=== PATIENT | male | born 1955 | race Caucasian/White ===

== ENCOUNTER 2017-03-07 17:30 | Emergency (ER) | payer MEDICAID ==
[~2017-03-07] VITALS: Ht 180.3 cm; Wt 104.3 kg
[2017-03-07 17:41] VITALS: BP 136/96
[2017-03-07 19:21] LABS: Basophils # (auto) 0.1 uL; Basophils % (auto) 1.5 % (0.0-2.0); Eosinophils # (auto) 0.1 uL; Eosinophils % (auto) 1.4 % (0.0-7.0); Hematocrit 36.4 % (41.0-53.0); Lymphocytes # (auto) 0.8 uL; Lymphocytes % (auto) 11.9 % (10.0-50.0); Mean Corpuscular Hemoglobin 28.6 pg (28.0-32.0); Mean Corpuscular Volume 86.6 fL (80.0-100.0); Mean Platelet Volume 7.9 fL (6.9-10.8); Monocytes % (auto) 13.7 % (0.0-12.0); Neutrophils % (auto) 71.5 % (37.0-80.0); Platelet Count (auto) 116 10^3/uL (140-450); Red Cell Distribution Width 18.4 % (11.8-14.3)
[2017-03-07 19:36] LABS: Albumin 3.3 g/dL (3.4-5.0); BUN/Creatinine Ratio 14.9; Bilirubin, Total 0.7 mg/dL (0.2-1.0); Calcium 8.6 mg/dL (8.5-10.1); Potassium 3.9 mmol/L (3.5-5.1); Total Protein 8.1 g/dL (6.4-8.2)
== END 2017-03-08 01:00 | disposition left against medical advice (07) ==
LOC: ER 17:33
DX: R10.11 Right upper quadrant pain (principal); Z53.21 Procedure and treatment not carried out due to patient leaving prior to being seen by health care provider
CPT/HCPCS: 36415; 74176; 80053; 85025; 93005

== ENCOUNTER 2017-06-11 03:56 | Emergency (ER) | payer MEDICAID ==
[~2017-06-11] VITALS: Ht 182.9 cm; Wt 99.8 kg
[2017-06-11 04:06] VITALS: BP 172/89
== END 2017-06-11 07:52 | disposition home or self-care (01) ==
LOC: ER 03:56 → EDBD 03:56 → ER 07:52
DX: M54.9 Dorsalgia, unspecified (principal); Z53.21 Procedure and treatment not carried out due to patient leaving prior to being seen by health care provider

== ENCOUNTER 2017-06-11 19:44 | Inpatient (IN) | payer MEDICAID ==
[~2017-06-11] VITALS: Ht 172.7 cm; Wt 91.2 kg
[2017-06-11 21:14] LABS: Basophils # (auto) 0 uL; Basophils % (auto) 0.5 % (0.0-2.0); Eosinophils # (auto) 0.1 uL; Eosinophils % (auto) 1.5 % (0.0-7.0); Hematocrit 38.6 % (41.0-53.0); Hemoglobin 12.8 g/dL (13.5-17.5); Lymphocytes # (auto) 0.6 uL; Lymphocytes % (auto) 9.1 % (10.0-50.0); Mean Corpuscular Hemoglobin 28.6 pg (28.0-32.0); Mean Corpuscular Hgb Conc. 33.2 g/dL (32.0-36.0); Monocytes # (auto) 0.7 uL; Monocytes % (auto) 9.8 % (0.0-12.0); Neutrophils # (auto) 5.4 uL; Neutrophils % (auto) 79.1 % (37.0-80.0); Nucleated Red Blood Cells % 0.2 %; Platelet Count (auto) 139 10^3/uL (140-450); Red Blood Cells 4.49 10^6/uL (4.5-5.90); Red Cell Distribution Width 17.5 % (11.8-14.3); White Blood Cell 6.8 10^3/uL (4.4-10.8)
[2017-06-11] MEDS ORDERED: ONDANSETRON HCL 4 MG/2 ML VIAL IV ONE (21:30)
[2017-06-11] MEDS ORDERED: MORPHINE SULFATE 4 MG/ML SYR/VIAL IV ONE ×2 (21:30→23:00)
[2017-06-11 21:33] LABS: Alanine Aminotransferase 47 U/L (16-61); Albumin 3.6 g/dL (3.4-5.0); Amylase 20 U/L (25-115); Anion Gap 7 (5-15); Aspartate Aminotransferase 40 U/L (15-37); BUN/Creatinine Ratio 11.1; Blood Urea Nitrogen 10 mg/dL (7-18); Calcium 8.7 mg/dL (8.5-10.1); Carbon Dioxide 23 mmol/L (21-32); Chloride 103 mmol/L (98-107); GFR African American 110 mL/min; GFR Non-African American 91 mL/min; Glucose 135 mg/dL (74-106); Lipase 115 U/L (73-393); Potassium 3.7 mmol/L (3.5-5.1); Sodium 133 mmol/L (136-145)
[2017-06-11 21:39] LABS: Alkaline Phosphatase 91 U/L (45-117); Bilirubin, Total 0.9 mg/dL (0.2-1.0); Total Protein 8.6 g/dL (6.4-8.2)
[2017-06-11 22:21] LABS: INR 1.02 (0.9-1.15); Prothrombin Time 11.1 sec (9.37-12.3)
[2017-06-11] MEDS ORDERED: cloNIDine HCL 0.1 MG TAB PO ONE (23:00)
[2017-06-12] MEDS ORDERED: ACETAMINOPHEN 500 MG TAB PO PRN
[2017-06-12] MEDS ORDERED: MORPHINE SULFATE 4 MG/ML SYR/VIAL IV PRN
[2017-06-12] MEDS ORDERED: ONDANSETRON HCL 4 MG/2 ML VIAL IV PRN
[2017-06-12] MEDS ORDERED: HYDROcodone-ACET 5/325MG TAB PO PRN
[2017-06-12] MEDS: SODIUM CHLORIDE 0.9% 1,000 ML IV SCH ×2 (00:20→11:14)
[2017-06-12 01:09] VITALS: BP 132/75
[2017-06-12 01:20] LABS: Urine Bacteria FEW /hpf (None Seen); Urine Blood Negative /uL (Negative); Urine Mucus FEW (None Seen); Urine Specific Gravity 1.019 (1.001-1.035); Urine WBC 6 /hpf (0 - 3)
[2017-06-12 02:15] VITALS: BP 132/75
[2017-06-12 05:26] VITALS: BP 131/92
[2017-06-12] MEDS ORDERED: DEXTROSE (50%) 50ML SYRG IV PRN (07:00)
[2017-06-12] MEDS: ACCU-CHEK COMFORT CURVE STRIP VI SCH ×2 (07:00→12:33)
[2017-06-12] MEDS: InsuLIN REG 1unit/0.01ml Soln (100units/ml) SC SCH ×2 (07:00→12:34)
[2017-06-12 08:00] VITALS: BP 111/71
[2017-06-12 09:00] VITALS: BP 111/71
[2017-06-12] MEDS ORDERED: LISINOPRIL 10 MG TAB PO SCH (10:00)
[2017-06-12 13:00] VITALS: BP 110/76
[2017-06-12] MEDS ORDERED: PIPERACILLIN-TAZOB 3.375GM 100 ML IV SCH (18:00)
== END 2017-06-12 15:10 | disposition home or self-care (01) | DRG 351 ==
LOC: ER 19:44 → TELE-WESTW 19:45
PROVIDERS: ADMIT Nurse Practitioner Family; ATTEND Internal Medicine
DX: M25.552 Pain in left hip (principal); K74.60 Unspecified cirrhosis of liver; I10 Essential (primary) hypertension; E11.9 Type 2 diabetes mellitus without complications; D64.9 Anemia, unspecified; K57.30 Diverticulosis of large intestine without perforation or abscess without bleeding; F17.210 Nicotine dependence, cigarettes, uncomplicated; K80.20 Calculus of gallbladder without cholecystitis without obstruction; N20.0 Calculus of kidney; Z90.49 Acquired absence of other specified parts of digestive tract; Z88.5 Allergy status to narcotic agent; Z83.3 Family history of diabetes mellitus
CPT/HCPCS: 36415; 71045; 73502; 74176; 76705; 80053; 81001; 82150; 82962; 83690; 83735; 84484; 85025; 85610; 85730; 93005; 94761; 96361; 96374; 96375; 96376; J1815; J2405

== ENCOUNTER 2017-12-11 12:23 | Inpatient (IN) | payer MEDICAID ==
[~2017-12-11] VITALS: Ht 180.3 cm; Wt 125.6 kg
[2017-12-11] VITALS (17 sets, daily range): BP systolic 77–175; BP diastolic 48–76
[2017-12-11 13:19] LABS: Basophils # (auto) 0 uL; Mean Corpuscular Hemoglobin 31.4 pg (28.0-32.0)
[2017-12-11 13:21] LABS: Basophils % (auto) 0.5 % (0.0-2.0); Eosinophils # (auto) 0.2 uL; Eosinophils % (auto) 2.2 % (0.0-7.0); Hematocrit 22.9 % (41.0-53.0); Hemoglobin 7.6 g/dL (13.5-17.5); Lymphocytes # (auto) 1.1 uL; Lymphocytes % (auto) 13.5 % (10.0-50.0); Mean Corpuscular Hgb Conc. 33.2 g/dL (32.0-36.0); Mean Corpuscular Volume 94.5 fL (80.0-100.0); Monocytes # (auto) 0.8 uL; Monocytes % (auto) 10.6 % (0.0-12.0); Neutrophils # (auto) 5.7 uL; Neutrophils % (auto) 73.2 % (37.0-80.0); Platelet Count (auto) 137 10^3/uL (140-450); Red Blood Cells 2.43 10^6/uL (4.5-5.90); Red Cell Distribution Width 15.5 % (11.8-14.3); White Blood Cell 7.8 10^3/uL (4.4-10.8)
[2017-12-11 13:27] LABS: Albumin 2.4 g/dL (3.4-5.0); BUN/Creatinine Ratio 18.7; Calcium 7.8 mg/dL (8.5-10.1); Potassium 3.9 mmol/L (3.5-5.1)
[2017-12-11 13:29] LABS: Bilirubin, Total 0.5 mg/dL (0.2-1.0); Total Protein 5.8 g/dL (6.4-8.2)
[2017-12-11 13:42] LABS: Magnesium 1.8 mg/dL (1.6-2.6)
[2017-12-11 13:56] LABS: INR 1.17 (0.9-1.15); Partial Thromboplastin Time 21.5 sec (23.78-33.04); Prothrombin Time 12.4 sec (9.27-12.13)
[2017-12-11] MEDS ORDERED: PANTOPRAZOLE 80 MG in SODIUM CHL 0.9% 60 ML IV ONE (16:00)
[2017-12-11] MEDS ORDERED: SODIUM CHLORIDE 0.9% 1,000 ML IV ONE (16:00)
[2017-12-11] MEDS ORDERED: PANTOPRAZOLE 40 MG/10 ML VIAL IV ONE ×2 (16:00→23:45)
[2017-12-11] MEDS ORDERED: LORazepam 2MG/ML-1ML VIAL ONE (17:00)
[2017-12-11] MEDS ORDERED: MORPHINE SULFATE 4 MG/ML SYR/VIAL IV ONE (17:15)
[2017-12-11] MEDS ORDERED: LORazepam 2MG/ML-1ML VIAL IV ONE (17:15)
[2017-12-11] MEDS ORDERED: ONDANSETRON HCL 4 MG/2 ML VIAL IV ONE (17:15)
[2017-12-11] MEDS ORDERED: SUCCINYLCHOLINE CHLORIDE 20 MG/ML 10ML VIAL IV ONE ×4 (17:22→18:45)
[2017-12-11] MEDS ORDERED: ETOMIDATE (2MG/ML) 20ML VIAL IV ONE ×2 (17:22→18:45)
[2017-12-11] MEDS: MIDAZOLAM DRIP 50 mg/50mL 50 ML IV SCH ×2 (17:30→23:53)
[2017-12-11] MEDS ORDERED: MIDAZOLAM DRIP 50 mg/50mL 50 ML IV ONE ×3 (17:38→23:44)
[2017-12-11] MEDS ORDERED: NOREPINEPHRINE 8 MG/250ML KIT 250 ML IV ONE (17:44)
[2017-12-11 17:54] LABS: Hematocrit 20.7 % (41.0-53.0)
[2017-12-11 17:56] LABS: Hemoglobin 6.5 g/dL (13.5-17.5)
[2017-12-11] MEDS: OCTREOTIDE ACETATE 500 MCG in SODIUM CHL 0.9% 99 ML IV SCH (18:00)
[2017-12-11] MEDS: PROPOFOL 100 ML IV SCH (18:00)
[2017-12-11] MEDS ORDERED: PROPOFOL 100 ML IV ONE ×2 (18:09→21:56)
[2017-12-11 18:15] LABS: Lactic Acid w/Reflex 8.8 mmol/L (0.4-2.0)
[2017-12-11] MEDS ORDERED: PHYTONADIONE (VIT K)10 MG/ML 1ML VIAL SUBCUT ONE (18:30)
[2017-12-11] MEDS ORDERED: cefTRIAXone 1GM/10ml IVPUSH 10 ML IV ONE (18:45)
[2017-12-11] MEDS ORDERED: NITROGLYCERIN 0.4 MG SL TAB SL PRN (18:45)
[2017-12-11] MEDS ORDERED: OCTREOTIDE ACETATE 100 MCG in SODIUM CHL 0.9% 50 ML IV ONE (18:45)
[2017-12-11] MEDS ORDERED: DEXTROSE (50%) 50ML SYRG IV PRN (18:45)
[2017-12-11] MEDS ORDERED: MORPHINE SULFATE 4 MG/ML SYR/VIAL IV PRN ×3 (18:45)
[2017-12-11] MEDS ORDERED: OCTREOTIDE ACETATE 500 MCG in SODIUM CHL 0.9% 99 ML IV SCH (18:45)
[2017-12-11] MEDS ORDERED: ONDANSETRON HCL 4 MG/2 ML VIAL IV PRN (18:45)
[2017-12-11] MEDS: NOREPINEPHRINE 8 MG/250ML KIT 250 ML IV SCH (19:03)
[2017-12-11] MEDS: metroNIDAZOLE 500MG/100ML 100 ML IV SCH (19:33)
[2017-12-11] MEDS: SODIUM CHLORIDE 0.9% 1,000 ML IV SCH (19:41)
[2017-12-11 19:48] LABS: Amylase 19 U/L (25-115); Lipase 185 U/L (73-393)
[2017-12-11 21:58] LABS: Albumin 2.3 g/dL (3.4-5.0); Calcium 6.7 mg/dL (8.5-10.1)
[2017-12-11 22:05] LABS: BUN/Creatinine Ratio 22.7; Bilirubin, Total 0.8 mg/dL (0.2-1.0); Total Protein 5.1 g/dL (6.4-8.2)
[2017-12-11 22:07] LABS: Potassium 5.7 mmol/L (3.5-5.1)
[2017-12-12] VITALS (109 sets, daily range): BP systolic 71–146; BP diastolic 37–91
[2017-12-12] MEDS: ACCU-CHEK COMFORT CURVE STRIP VI SCH ×4 (00:01→18:00)
[2017-12-12] MEDS ORDERED: SODIUM POLYSTYRENE SULF 15GM/60ML SUSP PR ONE (00:30)
[2017-12-12] MEDS: PANTOPRAZOLE 80 MG in SODIUM CHL 0.9% 60 ML IV SCH ×3 (01:06→22:30)
[2017-12-12] MEDS: NOREPINEPHRINE 8 MG/250ML KIT 250 ML IV SCH ×5 (01:21→23:38)
[2017-12-12] MEDS: SODIUM CHLORIDE 0.9% 1,000 ML IV SCH ×3 (01:25→18:47)
[2017-12-12] MEDS: OCTREOTIDE ACETATE 500 MCG in SODIUM CHL 0.9% 99 ML IV SCH ×2 (01:27→14:00)
[2017-12-12] MEDS ORDERED: MIDAZOLAM DRIP 50 mg/50mL 50 ML IV ONE ×5 (03:00→20:28)
[2017-12-12] MEDS: metroNIDAZOLE 500MG/100ML 100 ML IV SCH ×3 (03:19→19:38)
[2017-12-12] MEDS: MIDAZOLAM DRIP 50 mg/50mL 50 ML IV SCH ×6 (03:22→20:46)
[2017-12-12] MEDS ORDERED: PROPOFOL 100 ML IV ONE (03:27)
[2017-12-12 04:20] LABS: Basophils # (auto) 0.1 uL; Eosinophils # (auto) 0.3 uL; Eosinophils % (auto) 1.1 % (0.0-7.0); Hemoglobin 7.8 g/dL (13.5-17.5); INR 1.28 (0.9-1.15); Monocytes # (auto) 2.4 uL; Partial Thromboplastin Time 26.4 sec (23.78-33.04); Prothrombin Time 13.5 sec (9.27-12.13)
[2017-12-12 04:21] LABS: Basophils % (auto) 0.4 % (0.0-2.0); Hematocrit 22.7 % (41.0-53.0); Lymphocytes # (auto) 2.5 uL; Lymphocytes % (auto) 9.1 % (10.0-50.0); Mean Corpuscular Hemoglobin 31.5 pg (28.0-32.0); Mean Corpuscular Hgb Conc. 34.4 g/dL (32.0-36.0); Mean Corpuscular Volume 91.5 fL (80.0-100.0); Monocytes % (auto) 8.6 % (0.0-12.0); Neutrophils # (auto) 22.6 uL; Neutrophils % (auto) 80.8 % (37.0-80.0); Nucleated Red Blood Cells % 0.2 %; Platelet Count (auto) 210 10^3/uL (140-450); Red Blood Cells 2.48 10^6/uL (4.5-5.90); Red Cell Distribution Width 15.2 % (11.8-14.3)
[2017-12-12 04:22] LABS: BUN/Creatinine Ratio 20.5; Calcium 6.6 mg/dL (8.5-10.1); Potassium 5.2 mmol/L (3.5-5.1)
[2017-12-12 04:25] LABS: Bilirubin, Total 0.7 mg/dL (0.2-1.0); Total Protein 4.5 g/dL (6.4-8.2)
[2017-12-12] MEDS: PROPOFOL 100 ML IV SCH (05:08)
[2017-12-12] MEDS: InsuLIN REG 1unit/0.01ml Soln (100units/ml) SC SCH ×4 (05:27→18:00)
[2017-12-12 08:40] LABS: Hemoglobin 7.8 g/dL (13.5-17.5)
[2017-12-12] MEDS: cefTRIAXone 1GM/10ml IVPUSH 10 ML IV SCH (09:00)
[2017-12-12] MEDS: fentaNYL Drip 2500mCg/250mlNS 250 ML IV SCH (11:30)
[2017-12-12 12:11] LABS: Potassium 6.9 mmol/L (3.5-5.1)
[2017-12-12 12:30] LABS: Hematocrit 21.4 % (41.0-53.0)
[2017-12-12] MEDS ORDERED: SODIUM BICARBONATE 8.4 % INJ 50ML VIAL IV ONE ×2 (12:30→18:45)
[2017-12-12] MEDS ORDERED: CALCIUM CHL 100MG/ML 1,000 MG in D5W 5% 100 ML IV ONE (12:30)
[2017-12-12] MEDS ORDERED: InsuLIN REG 1unit/0.01ml Soln (100units/ml) IV ONE ×2 (12:30→18:00)
[2017-12-12] MEDS ORDERED: DEXTROSE (50%) 50ML SYRG IV ONE ×2 (12:30→18:00)
[2017-12-12] MEDS: PHENYLEPHRINE INJ 20 MG in SODIUM CHL 0.9% 250 ML IV SCH ×4 (12:30→23:38)
[2017-12-12 12:43] LABS: Hemoglobin 6.8 g/dL (13.5-17.5)
[2017-12-12] MEDS: ALBUMIN 25% 100 ML IV SCH ×2 (13:00→19:38)
[2017-12-12] MEDS ORDERED: ALBUTEROL SULF 2.5 MG/0.5ML(0.5%) NEB SOLN NEB ONE (14:15)
[2017-12-12] MEDS ORDERED: VASOPRESSIN 20 UNIT/ML ONE (14:36)
[2017-12-12] MEDS ORDERED: VASOPRESSIN 50 UNITS in D5W 5% 247.5 ML IV SCH (14:45)
[2017-12-12] MEDS: VASOPRESSIN IV SCH ×2 (15:00→21:36)
[2017-12-12] MEDS: [UNRECOGNIZED DRUG - OTHER] IV SCH ×2 (15:00→21:36)
[2017-12-12] MEDS ORDERED: PHENYLEPHRINE IV 250 ML IV ONE ×2 (15:36→18:53)
[2017-12-12] MEDS ORDERED: SODIUM BICARBONATE 8.4% INJ 50ML SYRINGE IV ONE (18:00)
[2017-12-12] MEDS ORDERED: CALCIUM GLUC 4.65meq/50ml D5AE 50 ML IV ONE (18:00)
[2017-12-12 19:08] LABS: Hematocrit 18.2 % (41.0-53.0)
[2017-12-12 19:10] LABS: Hemoglobin 5.9 g/dL (13.5-17.5)
[2017-12-12 23:00] LABS: BUN/Creatinine Ratio 18.5; Calcium 6.2 mg/dL (8.5-10.1); Potassium 5.4 mmol/L (3.5-5.1)
[2017-12-12] MEDS ORDERED: PHENYLEPHRINE HCL 10 MG/ML VL ONE (23:18)
[2017-12-13] VITALS (79 sets, daily range): BP systolic 100–156; BP diastolic 48–84
[2017-12-13] MEDS: SODIUM CHLORIDE 0.9% 1,000 ML IV SCH ×3 (01:30→18:31)
[2017-12-13] MEDS: VASOPRESSIN IV SCH ×7 (01:31→22:22)
[2017-12-13] MEDS: [UNRECOGNIZED DRUG - OTHER] IV SCH ×7 (01:31→22:22)
[2017-12-13] MEDS ORDERED: PHENYLEPHRINE HCL 10 MG/ML VL ONE (02:17)
[2017-12-13] MEDS: InsuLIN REG 1unit/0.01ml Soln (100units/ml) SC SCH ×4 (02:43→18:00)
[2017-12-13] MEDS: ACCU-CHEK COMFORT CURVE STRIP VI SCH ×4 (02:43→18:00)
[2017-12-13 02:55] LABS: Eosinophils # (auto) 0 uL; Eosinophils % (auto) 0.2 % (0.0-7.0); Hematocrit 22.8 % (41.0-53.0); Hemoglobin 7.4 g/dL (13.5-17.5); Lymphocytes # (auto) 1.9 uL; Mean Corpuscular Hemoglobin 29.4 pg (28.0-32.0); Neutrophils # (auto) 17.1 uL; Nucleated Red Blood Cells % 0.1 %; White Blood Cell 21.1 10^3/uL (4.4-10.8)
[2017-12-13 02:57] LABS: Basophils # (auto) 0.1 uL; Basophils % (auto) 0.3 % (0.0-2.0); Lymphocytes % (auto) 8.9 % (10.0-50.0); Mean Corpuscular Hgb Conc. 32.3 g/dL (32.0-36.0); Mean Corpuscular Volume 91.1 fL (80.0-100.0); Monocytes % (auto) 9.6 % (0.0-12.0); Red Blood Cells 2.51 10^6/uL (4.5-5.90); Red Cell Distribution Width 16.7 % (11.8-14.3)
[2017-12-13 03:11] LABS: INR 1.61 (0.9-1.15); Partial Thromboplastin Time 34.1 sec (23.78-33.04); Platelet Count (auto) 95 10^3/uL (140-450); Prothrombin Time 16.8 sec (9.27-12.13)
[2017-12-13 03:14] LABS: Albumin 2.3 g/dL (3.4-5.0); BUN/Creatinine Ratio 19.3
[2017-12-13 03:16] LABS: Bilirubin, Total 1.1 mg/dL (0.2-1.0); Total Protein 4.1 g/dL (6.4-8.2)
[2017-12-13 03:19] LABS: Potassium 5.8 mmol/L (3.5-5.1)
[2017-12-13] MEDS: metroNIDAZOLE 500MG/100ML 100 ML IV SCH ×3 (03:21→22:54)
[2017-12-13] MEDS: ALBUMIN 25% 100 ML IV SCH (03:21)
[2017-12-13] MEDS ORDERED: CALCIUM GLUC 4.65meq/50ml D5AE 50 ML IV ONE (04:15)
[2017-12-13] MEDS ORDERED: SODIUM POLYSTYRENE SULF 15GM/60ML SUSP PR ONE (04:15)
[2017-12-13 06:10] LABS: Amphetamine Screen, Urine POSITIVE (NEGATIVE); Barbiturate Scree,Urine NEGATIVE (NEGATIVE); Benzodiazephine Screen, Urine POSITIVE (NEGATIVE); Cannabinoid Screen, Urine NEGATIVE (NEGATIVE); Cocaine Screen, Urine NEGATIVE (NEGATIVE)
[2017-12-13 06:16] LABS: Alcohol, Urine < 3.0 mg/dL (0-5); Opiate Scree,Urine NEGATIVE (NEGATIVE); Phencyclidine Screen, Urine NEGATIVE (NEGATIVE)
[2017-12-13] MEDS: NOREPINEPHRINE 8 MG/250ML KIT 250 ML IV SCH ×2 (06:34→21:00)
[2017-12-13] MEDS: PANTOPRAZOLE 80 MG in SODIUM CHL 0.9% 60 ML IV SCH ×2 (08:00→18:00)
[2017-12-13] MEDS: MIDAZOLAM DRIP 50 mg/50mL 50 ML IV SCH ×2 (08:30→22:23)
[2017-12-13] MEDS: fentaNYL Drip 2500mCg/250mlNS 250 ML IV SCH (08:30)
[2017-12-13] MEDS: cefTRIAXone 1GM/10ml IVPUSH 10 ML IV SCH (09:00)
[2017-12-13] MEDS: OCTREOTIDE ACETATE 500 MCG in SODIUM CHL 0.9% 99 ML IV SCH ×4 (10:00→16:30)
[2017-12-13] MEDS ORDERED: LIDOCAINE 2% (LOCAL ANESTH.) PF 5ml SDV ONE (10:25)
[2017-12-13] MEDS ORDERED: IOHEXOL 350 MG/ML 100ML IJ ONE ×2 (10:25→19:12)
[2017-12-13 11:12] LABS: Urine WBC None Seen /hpf (0 - 3)
[2017-12-13 11:27] LABS: Urine Bacteria FEW /hpf (None Seen); Urine Blood 3+ /uL (Negative); Urine Hyaline Cast FEW /lpf (0 - 2); Urine Mucus FEW (None Seen); Urine Specific Gravity 1.014 (1.001-1.035)
[2017-12-13 11:33] LABS: Protein, Urine 20.7 mg/dL (0.0-11.9)
[2017-12-13] MEDS ORDERED: PHENYLEPHRINE IV 250 ML IV ONE (11:58)
[2017-12-13] MEDS: PHENYLEPHRINE INJ 20 MG in SODIUM CHL 0.9% 250 ML IV SCH ×2 (12:06→20:26)
[2017-12-13] MEDS ORDERED: VASOPRESSIN 20 UNIT/ML ONE (17:55)
[2017-12-13] MEDS: PROPOFOL 100 ML IV SCH (18:43)
[2017-12-13] MEDS ORDERED: GELATIN 1 SPONGE SIZE 50 TOP ONE (19:57)
[2017-12-13 21:31] LABS: Hemoglobin 7.5 g/dL (13.5-17.5)
[2017-12-14] VITALS (106 sets, daily range): BP systolic 90–167; BP diastolic 43–81
[2017-12-14] MEDS: MIDAZOLAM DRIP 50 mg/50mL 50 ML IV SCH ×5 (01:59→19:17)
[2017-12-14] MEDS: OCTREOTIDE ACETATE 500 MCG in SODIUM CHL 0.9% 99 ML IV SCH ×3 (01:59→23:00)
[2017-12-14 02:11] LABS: Eosinophils # (auto) 0.2 uL; Eosinophils % (auto) 1.5 % (0.0-7.0); Hemoglobin 7.4 g/dL (13.5-17.5); Monocytes # (auto) 1.7 uL; Nucleated Red Blood Cells % 0.1 %
[2017-12-14 02:12] LABS: Basophils # (auto) 0.1 uL; Basophils % (auto) 0.4 % (0.0-2.0); Hematocrit 22.7 % (41.0-53.0); Lymphocytes # (auto) 1.1 uL; Mean Corpuscular Hemoglobin 30.2 pg (28.0-32.0); Mean Corpuscular Hgb Conc. 32.5 g/dL (32.0-36.0); Mean Corpuscular Volume 92.8 fL (80.0-100.0); Monocytes % (auto) 11.5 % (0.0-12.0); Neutrophils # (auto) 11.2 uL; Neutrophils % (auto) 78.6 % (37.0-80.0); Red Blood Cells 2.45 10^6/uL (4.5-5.90); Red Cell Distribution Width 16.3 % (11.8-14.3); White Blood Cell 14.3 10^3/uL (4.4-10.8)
[2017-12-14 02:13] LABS: Platelet Count (auto) 65 10^3/uL (140-450)
[2017-12-14 02:28] LABS: Albumin 2.3 g/dL (3.4-5.0); Calcium 6.6 mg/dL (8.5-10.1); Potassium 5.2 mmol/L (3.5-5.1)
[2017-12-14] MEDS: SODIUM CHLORIDE 0.9% 1,000 ML IV SCH (02:31)
[2017-12-14] MEDS: [UNRECOGNIZED DRUG - OTHER] IV SCH ×5 (02:35→21:10)
[2017-12-14] MEDS: VASOPRESSIN IV SCH ×5 (02:35→21:10)
[2017-12-14 02:37] LABS: Bilirubin, Total 1.6 mg/dL (0.2-1.0); Total Protein 4.2 g/dL (6.4-8.2)
[2017-12-14] MEDS: metroNIDAZOLE 500MG/100ML 100 ML IV SCH ×3 (02:53→18:53)
[2017-12-14] MEDS: PANTOPRAZOLE 80 MG in SODIUM CHL 0.9% 60 ML IV SCH ×3 (04:02→23:00)
[2017-12-14] MEDS: PHENYLEPHRINE INJ 20 MG in SODIUM CHL 0.9% 250 ML IV SCH ×3 (04:46→21:26)
[2017-12-14] MEDS ORDERED: CALCIUM GLUC 4.65meq/50ml D5AE 50 ML IV ONE ×2 (05:00→10:45)
[2017-12-14] MEDS: InsuLIN REG 1unit/0.01ml Soln (100units/ml) SC SCH ×4 (05:28→18:45)
[2017-12-14] MEDS: ACCU-CHEK COMFORT CURVE STRIP VI SCH ×4 (06:07→18:23)
[2017-12-14] MEDS ORDERED: SOD CHL 0.45% 1,000 ML IV SCH (08:30)
[2017-12-14] MEDS: fentaNYL Drip 2500mCg/250mlNS 250 ML IV SCH (09:00)
[2017-12-14] MEDS: NOREPINEPHRINE 8 MG/250ML KIT 250 ML IV SCH ×2 (09:12→16:00)
[2017-12-14] MEDS: cefTRIAXone 1GM/10ml IVPUSH 10 ML IV SCH (09:44)
[2017-12-14] MEDS ORDERED: TPN PER PHARMACY 0 ML IV SCH (10:45)
[2017-12-14 11:43] LABS: Magnesium 2.1 mg/dL (1.6-2.6); Phosphorus 2.5 mg/dL (2.5-4.90)
[2017-12-14 11:57] LABS: Hemoglobin 7.2 g/dL (13.5-17.5)
[2017-12-14 11:59] LABS: Hematocrit 21.4 % (41.0-53.0)
[2017-12-14] MEDS: LACTULOSE 20Gm/30ML SOLN PR SCH ×2 (14:00→19:00)
[2017-12-14] MEDS: PROPOFOL 100 ML IV SCH (18:43)
[2017-12-14] MEDS ORDERED: TPN PER PHARMACY IV NR ×6 (20:00)
[2017-12-14 22:34] LABS: Hemoglobin 8.8 g/dL (13.5-17.5)
[2017-12-14 22:36] LABS: Hematocrit 25.8 % (41.0-53.0)
[2017-12-15] VITALS (104 sets, daily range): BP systolic 100–124; BP diastolic 45–73
[2017-12-15] MEDS ORDERED: DEXTROSE (50%) 50ML SYRG IV SCH
[2017-12-15] MEDS: ACCU-CHEK COMFORT CURVE STRIP VI SCH ×4 (00:13→17:49)
[2017-12-15] MEDS: LACTULOSE 20Gm/30ML SOLN PR SCH ×4 (00:13→17:50)
[2017-12-15] MEDS: InsuLIN REG 1unit/0.01ml Soln (100units/ml) SC SCH ×4 (00:14→17:50)
[2017-12-15] MEDS: MIDAZOLAM DRIP 50 mg/50mL 50 ML IV SCH ×3 (00:14→07:56)
[2017-12-15] MEDS: VASOPRESSIN IV SCH ×6 (01:20→22:10)
[2017-12-15] MEDS: [UNRECOGNIZED DRUG - OTHER] IV SCH ×6 (01:20→22:10)
[2017-12-15] MEDS: metroNIDAZOLE 500MG/100ML 100 ML IV SCH ×3 (03:33→18:11)
[2017-12-15 03:59] LABS: Lymphocytes # (auto) 0.8 uL; Red Blood Cells 2.85 10^6/uL (4.5-5.90)
[2017-12-15 04:01] LABS: Basophils # (auto) 0 uL; Basophils % (auto) 0.3 % (0.0-2.0); Eosinophils # (auto) 0.4 uL; Eosinophils % (auto) 3.4 % (0.0-7.0); Hematocrit 25.8 % (41.0-53.0); Hemoglobin 8.7 g/dL (13.5-17.5); Lymphocytes % (auto) 6.7 % (10.0-50.0); Mean Corpuscular Hemoglobin 30.7 pg (28.0-32.0); Mean Corpuscular Hgb Conc. 33.9 g/dL (32.0-36.0); Mean Corpuscular Volume 90.5 fL (80.0-100.0); Monocytes # (auto) 1.3 uL; Monocytes % (auto) 11.4 % (0.0-12.0); Neutrophils # (auto) 9.1 uL; Neutrophils % (auto) 78.2 % (37.0-80.0); Nucleated Red Blood Cells % 0.1 %; Red Cell Distribution Width 15.5 % (11.8-14.3); White Blood Cell 11.6 10^3/uL (4.4-10.8)
[2017-12-15 04:04] LABS: Platelet Count (auto) 60 10^3/uL (140-450)
[2017-12-15 04:30] LABS: Albumin 2.2 g/dL (3.4-5.0); BUN/Creatinine Ratio 30.3; Bilirubin, Total 1.8 mg/dL (0.2-1.0); Calcium 7.3 mg/dL (8.5-10.1); Magnesium 2.4 mg/dL (1.6-2.6); Phosphorus 1.3 mg/dL (2.5-4.90); Potassium 3.7 mmol/L (3.5-5.1); Pre Albumin 5.1 mg/dL (20.0-40.0); Total Protein 4.3 g/dL (6.4-8.2)
[2017-12-15] MEDS: PHENYLEPHRINE INJ 20 MG in SODIUM CHL 0.9% 250 ML IV SCH ×3 (05:46→22:26)
[2017-12-15] MEDS: OCTREOTIDE ACETATE 500 MCG in SODIUM CHL 0.9% 99 ML IV SCH ×2 (09:37→22:00)
[2017-12-15] MEDS: PANTOPRAZOLE 80 MG in SODIUM CHL 0.9% 60 ML IV SCH ×2 (09:38→20:04)
[2017-12-15] MEDS: cefTRIAXone 1GM/10ml IVPUSH 10 ML IV SCH (09:51)
[2017-12-15] MEDS ORDERED: POTASSIUM PHOSPHATE 44 MEQ in D5W 5% 250 ML IV ONE (10:00)
[2017-12-15] MEDS: fentaNYL Drip 2500mCg/250mlNS 250 ML IV SCH ×2 (11:06→15:56)
[2017-12-15] MEDS ORDERED: D5W 5% 1,000 ML IV SCH (13:30)
[2017-12-15] MEDS: NOREPINEPHRINE 8 MG/250ML KIT 250 ML IV SCH (15:22)
[2017-12-15] MEDS: PROPOFOL 100 ML IV SCH (19:23)
[2017-12-15] MEDS ORDERED: TPN PER PHARMACY IV NR ×5 (20:00)
[2017-12-16] VITALS (102 sets, daily range): BP systolic 81–132; BP diastolic 41–68
[2017-12-16] MEDS: ACCU-CHEK COMFORT CURVE STRIP VI SCH ×4 (00:40→18:03)
[2017-12-16] MEDS: InsuLIN REG 1unit/0.01ml Soln (100units/ml) SC SCH ×4 (00:40→18:20)
[2017-12-16] MEDS: LACTULOSE 20Gm/30ML SOLN PR SCH ×3 (00:42→12:00)
[2017-12-16] MEDS: metroNIDAZOLE 500MG/100ML 100 ML IV SCH ×3 (02:51→18:33)
[2017-12-16] MEDS: fentaNYL Drip 2500mCg/250mlNS 250 ML IV SCH ×3 (02:52→20:20)
[2017-12-16 04:35] LABS: Basophils # (auto) 0 uL; Basophils % (auto) 0.4 % (0.0-2.0); Eosinophils # (auto) 0.3 uL; Hemoglobin 8.6 g/dL (13.5-17.5); Lymphocytes # (auto) 0.7 uL; Platelet Count (auto) 50 10^3/uL (140-450); White Blood Cell 7.9 10^3/uL (4.4-10.8)
[2017-12-16 04:37] LABS: Eosinophils % (auto) 3.6 % (0.0-7.0); Hematocrit 25.3 % (41.0-53.0); Lymphocytes % (auto) 8.7 % (10.0-50.0); Mean Corpuscular Hgb Conc. 34.1 g/dL (32.0-36.0); Mean Corpuscular Volume 93.7 fL (80.0-100.0); Monocytes # (auto) 0.9 uL; Monocytes % (auto) 11.6 % (0.0-12.0); Neutrophils % (auto) 75.7 % (37.0-80.0); Nucleated Red Blood Cells % 0.1 %; Red Cell Distribution Width 16.4 % (11.8-14.3)
[2017-12-16 04:50] LABS: Albumin 2.1 g/dL (3.4-5.0); Bilirubin, Total 2.1 mg/dL (0.2-1.0); Magnesium 2.6 mg/dL (1.6-2.6); Phosphorus 2.4 mg/dL (2.5-4.90); Potassium 3.8 mmol/L (3.5-5.1); Total Protein 4.4 g/dL (6.4-8.2)
[2017-12-16] MEDS: NOREPINEPHRINE 8 MG/250ML KIT 250 ML IV SCH ×2 (06:16→20:19)
[2017-12-16] MEDS: PANTOPRAZOLE 80 MG in SODIUM CHL 0.9% 60 ML IV SCH (06:19)
[2017-12-16] MEDS: VASOPRESSIN IV SCH ×6 (06:30→23:10)
[2017-12-16] MEDS: [UNRECOGNIZED DRUG - OTHER] IV SCH ×6 (06:30→23:10)
[2017-12-16] MEDS: PHENYLEPHRINE INJ 20 MG in SODIUM CHL 0.9% 250 ML IV SCH ×3 (07:32→23:26)
[2017-12-16] MEDS ORDERED: D5W 5% 1,000 ML IV SCH (08:30)
[2017-12-16] MEDS: cefTRIAXone 1GM/10ml IVPUSH 10 ML IV SCH (09:51)
[2017-12-16] MEDS: OCTREOTIDE ACETATE 500 MCG in SODIUM CHL 0.9% 99 ML IV SCH (10:00)
[2017-12-16] MEDS ORDERED: CALCIUM GLUC 4.65meq/50ml D5AE 50 ML IV ONE (10:15)
[2017-12-16] MEDS ORDERED: MORPHINE SULFATE 4 MG/ML SYR/VIAL IV PRN ×3 (12:00)
[2017-12-16] MEDS: LACTULOSE 20Gm/30ML SOLN GT SCH ×2 (12:27→18:03)
[2017-12-16] MEDS: FREE WATER GT SCH ×3 (12:29→22:15)
[2017-12-16] MEDS: ALBUMIN 25% 100 ML IV SCH ×2 (15:15→17:01)
[2017-12-16] MEDS: PROPOFOL 100 ML IV SCH (18:43)
[2017-12-16] MEDS ORDERED: TPN PER PHARMACY IV NR ×6 (20:00)
[2017-12-16] MEDS: MIDAZOLAM DRIP 50 mg/50mL 50 ML IV SCH (20:15)
[2017-12-16] MEDS ORDERED: PANTOPRAZOLE 40 MG/10 ML VIAL IV SCH (22:00)
[2017-12-17] VITALS (114 sets, daily range): BP systolic 91–145; BP diastolic 41–90
[2017-12-17 01:09] LABS: Basophils # (auto) 0 uL; Basophils % (auto) 0.5 % (0.0-2.0); Hemoglobin 8.3 g/dL (13.5-17.5); Lymphocytes # (auto) 0.7 uL; Monocytes # (auto) 0.7 uL; Platelet Count (auto) 58 10^3/uL (140-450)
[2017-12-17 01:11] LABS: Eosinophils # (auto) 0.2 uL; Eosinophils % (auto) 3.1 % (0.0-7.0); Lymphocytes % (auto) 9.5 % (10.0-50.0); Mean Corpuscular Hemoglobin 31.5 pg (28.0-32.0); Mean Corpuscular Hgb Conc. 33.2 g/dL (32.0-36.0); Mean Corpuscular Volume 94.8 fL (80.0-100.0); Monocytes % (auto) 10.5 % (0.0-12.0); Neutrophils # (auto) 5.4 uL; Neutrophils % (auto) 76.4 % (37.0-80.0); Nucleated Red Blood Cells % 0.4 %; Red Blood Cells 2.64 10^6/uL (4.5-5.90); Red Cell Distribution Width 16.5 % (11.8-14.3); White Blood Cell 7.1 10^3/uL (4.4-10.8)
[2017-12-17 01:26] LABS: Albumin 2.5 g/dL (3.4-5.0); BUN/Creatinine Ratio 23.9; Calcium 7.1 mg/dL (8.5-10.1); Magnesium 2.3 mg/dL (1.6-2.6); Potassium 3.7 mmol/L (3.5-5.1)
[2017-12-17 01:29] LABS: Bilirubin, Total 2.7 mg/dL (0.2-1.0); Total Protein 4.8 g/dL (6.4-8.2)
[2017-12-17] MEDS: FREE WATER GT SCH ×3 (02:00→10:00)
[2017-12-17 02:17] LABS: Phosphorus 2.1 mg/dL (2.5-4.90)
[2017-12-17] MEDS: metroNIDAZOLE 500MG/100ML 100 ML IV SCH ×3 (02:53→20:07)
[2017-12-17] MEDS: [UNRECOGNIZED DRUG - OTHER] IV SCH ×5 (03:20→20:00)
[2017-12-17] MEDS: VASOPRESSIN IV SCH ×5 (03:20→20:00)
[2017-12-17 04:39] LABS: Hemoglobin 7.7 g/dL (13.5-17.5)
[2017-12-17 04:41] LABS: Hematocrit 23.1 % (41.0-53.0)
[2017-12-17] MEDS: LACTULOSE 20Gm/30ML SOLN GT SCH ×5 (06:00→23:19)
[2017-12-17] MEDS ORDERED: OCTREOTIDE ACETATE 500 MCG/ML VL ONE (06:04)
[2017-12-17] MEDS ORDERED: PANTOPRAZOLE 40 MG/10 ML VIAL IV ONE (06:12)
[2017-12-17] MEDS: InsuLIN REG 1unit/0.01ml Soln (100units/ml) SC SCH ×5 (06:18→23:19)
[2017-12-17] MEDS: ACCU-CHEK COMFORT CURVE STRIP VI SCH ×5 (06:18→23:19)
[2017-12-17] MEDS: OCTREOTIDE ACETATE 500 MCG in SODIUM CHL 0.9% 99 ML IV SCH ×3 (07:00→23:20)
[2017-12-17] MEDS: PANTOPRAZOLE 80 MG in SODIUM CHL 0.9% 60 ML IV SCH ×2 (07:00→15:02)
[2017-12-17] MEDS: PHENYLEPHRINE INJ 20 MG in SODIUM CHL 0.9% 250 ML IV SCH ×2 (07:46→16:06)
[2017-12-17] MEDS: MIDAZOLAM DRIP 50 mg/50mL 50 ML IV SCH ×4 (10:21→23:38)
[2017-12-17] MEDS: LEVOFLOXACIN 750MG 150 ML IV SCH (10:21)
[2017-12-17] MEDS ORDERED: CALCIUM GLUC 4.65meq/50ml D5AE 50 ML IV ONE (11:00)
[2017-12-17] MEDS ORDERED: FUROSEMIDE 20 MG/2 ML VIAL IV ONE (11:00)
[2017-12-17] MEDS ORDERED: POTASSIUM PHOSPHATE 44 MEQ in D5W 5% 250 ML IV ONE (11:30)
[2017-12-17] MEDS: fentaNYL Drip 2500mCg/250mlNS 250 ML IV SCH (15:02)
[2017-12-17] MEDS: BUMETANIDE (0.25MG/ML) 4 ML VIAL IV SCH (17:57)
[2017-12-17] MEDS: PROPOFOL 100 ML IV SCH (18:43)
[2017-12-17] MEDS ORDERED: TPN PER PHARMACY IV NR ×6 (20:00)
[2017-12-17] MEDS: SOD CHL 0.45% 1,000 ML IV SCH (20:10)
[2017-12-17 20:58] LABS: Hematocrit 26.6 % (41.0-53.0); Hemoglobin 8.9 g/dL (13.5-17.5)
[2017-12-17 21:10] LABS: Magnesium 1.8 mg/dL (1.6-2.6); Potassium 3.5 mmol/L (3.5-5.1)
[2017-12-17] MEDS: POTASSIUM CHL 20MEQ/100ML 100 ML IV SCH (23:16)
[2017-12-18] VITALS (108 sets, daily range): BP systolic 79–138; BP diastolic 36–81
[2017-12-18] MEDS: [UNRECOGNIZED DRUG - OTHER] IV SCH ×6 (00:10→21:00)
[2017-12-18] MEDS: VASOPRESSIN IV SCH ×6 (00:10→21:00)
[2017-12-18] MEDS: PHENYLEPHRINE INJ 20 MG in SODIUM CHL 0.9% 250 ML IV SCH ×3 (00:26→17:06)
[2017-12-18] MEDS: POTASSIUM CHL 20MEQ/100ML 100 ML IV SCH (00:50)
[2017-12-18] MEDS: PANTOPRAZOLE 80 MG in SODIUM CHL 0.9% 60 ML IV SCH ×3 (02:15→23:34)
[2017-12-18] MEDS: SOD CHL 0.45% 1,000 ML IV SCH ×2 (02:16→14:00)
[2017-12-18 03:11] LABS: Albumin 2.4 g/dL (3.4-5.0); BUN/Creatinine Ratio 21.9; Basophils # (auto) 0 uL; Basophils % (auto) 0.3 % (0.0-2.0); Bilirubin, Total 3.8 mg/dL (0.2-1.0); Calcium 7.2 mg/dL (8.5-10.1); Eosinophils # (auto) 0.2 uL; Eosinophils % (auto) 2.6 % (0.0-7.0); Hematocrit 27.9 % (41.0-53.0); Hemoglobin 9.2 g/dL (13.5-17.5); Lymphocytes # (auto) 0.4 uL; Magnesium 1.8 mg/dL (1.6-2.6); Mean Corpuscular Hemoglobin 31.4 pg (28.0-32.0); Mean Corpuscular Volume 95.2 fL (80.0-100.0); Monocytes # (auto) 0.7 uL; Monocytes % (auto) 10.5 % (0.0-12.0); Neutrophils # (auto) 5.3 uL; Neutrophils % (auto) 80.6 % (37.0-80.0); Nucleated Red Blood Cells % 0.8 %; Phosphorus 3.5 mg/dL (2.5-4.90); Platelet Count (auto) 61 10^3/uL (140-450); Potassium 3.8 mmol/L (3.5-5.1); Red Blood Cells 2.93 10^6/uL (4.5-5.90); Red Cell Distribution Width 16.4 % (11.8-14.3); Total Protein 4.9 g/dL (6.4-8.2); White Blood Cell 6.5 10^3/uL (4.4-10.8)
[2017-12-18] MEDS: metroNIDAZOLE 500MG/100ML 100 ML IV SCH ×3 (04:11→19:56)
[2017-12-18] MEDS: LACTULOSE 20Gm/30ML SOLN GT SCH ×4 (05:18→23:33)
[2017-12-18] MEDS: InsuLIN REG 1unit/0.01ml Soln (100units/ml) SC SCH ×4 (05:18→23:33)
[2017-12-18] MEDS: ACCU-CHEK COMFORT CURVE STRIP VI SCH ×4 (05:18→23:33)
[2017-12-18] MEDS: BUMETANIDE (0.25MG/ML) 4 ML VIAL IV SCH (05:18)
[2017-12-18] MEDS: MIDAZOLAM DRIP 50 mg/50mL 50 ML IV SCH ×4 (07:58→20:00)
[2017-12-18] MEDS: LEVOFLOXACIN 750MG 150 ML IV SCH (09:32)
[2017-12-18] MEDS: OCTREOTIDE ACETATE 500 MCG in SODIUM CHL 0.9% 99 ML IV SCH ×2 (09:33→19:41)
[2017-12-18] MEDS: fentaNYL Drip 2500mCg/250mlNS 250 ML IV SCH (15:13)
[2017-12-18] MEDS: PROPOFOL 100 ML IV SCH (17:50)
[2017-12-18] MEDS: NOREPINEPHRINE 8 MG/250ML KIT 250 ML IV SCH (17:50)
[2017-12-18] MEDS ORDERED: TPN PER PHARMACY IV NR ×8 (20:00)
[2017-12-19] VITALS (102 sets, daily range): BP systolic 89–142; BP diastolic 38–95
[2017-12-19] MEDS: VASOPRESSIN IV SCH ×5 (01:10→17:20)
[2017-12-19] MEDS: [UNRECOGNIZED DRUG - OTHER] IV SCH ×5 (01:10→17:20)
[2017-12-19] MEDS: PHENYLEPHRINE INJ 20 MG in SODIUM CHL 0.9% 250 ML IV SCH ×3 (01:26→18:06)
[2017-12-19 03:39] LABS: Basophils # (auto) 0.1 uL; Basophils % (auto) 1.4 % (0.0-2.0); Eosinophils # (auto) 0.2 uL; Eosinophils % (auto) 3.7 % (0.0-7.0); Hematocrit 28.9 % (41.0-53.0); Hemoglobin 9.4 g/dL (13.5-17.5); Lymphocytes # (auto) 0.4 uL; Lymphocytes % (auto) 6.6 % (10.0-50.0); Mean Corpuscular Hgb Conc. 32.4 g/dL (32.0-36.0); Mean Corpuscular Volume 95.8 fL (80.0-100.0); Monocytes # (auto) 0.7 uL; Monocytes % (auto) 10.3 % (0.0-12.0); Nucleated Red Blood Cells % 0.1 %; Platelet Count (auto) 67 10^3/uL (140-450); Red Blood Cells 3.02 10^6/uL (4.5-5.90); White Blood Cell 6.4 10^3/uL (4.4-10.8)
[2017-12-19 03:52] LABS: INR 1.47 (0.9-1.15); Partial Thromboplastin Time 31.8 sec (23.78-33.04); Prothrombin Time 15.4 sec (9.27-12.13)
[2017-12-19 04:01] LABS: Albumin 2.2 g/dL (3.4-5.0); BUN/Creatinine Ratio 19.4; Bilirubin, Total 5.5 mg/dL (0.2-1.0); Calcium 6.9 mg/dL (8.5-10.1); Magnesium 1.7 mg/dL (1.6-2.6); Phosphorus 3.5 mg/dL (2.5-4.90); Potassium 3.7 mmol/L (3.5-5.1); Total Protein 4.8 g/dL (6.4-8.2)
[2017-12-19] MEDS: metroNIDAZOLE 500MG/100ML 100 ML IV SCH ×3 (04:29→19:59)
[2017-12-19] MEDS: SOD CHL 0.45% 1,000 ML IV SCH ×3 (04:30→18:00)
[2017-12-19] MEDS: OCTREOTIDE ACETATE 500 MCG in SODIUM CHL 0.9% 99 ML IV SCH ×2 (05:52→17:33)
[2017-12-19] MEDS: MIDAZOLAM DRIP 50 mg/50mL 50 ML IV SCH (05:52)
[2017-12-19] MEDS: LACTULOSE 20Gm/30ML SOLN GT SCH ×3 (05:56→17:20)
[2017-12-19] MEDS: ACCU-CHEK COMFORT CURVE STRIP VI SCH ×3 (05:57→17:20)
[2017-12-19] MEDS: InsuLIN REG 1unit/0.01ml Soln (100units/ml) SC SCH ×3 (05:57→18:00)
[2017-12-19] MEDS: BUMETANIDE (0.25MG/ML) 4 ML VIAL IV SCH (06:06)
[2017-12-19] MEDS: PANTOPRAZOLE 80 MG in SODIUM CHL 0.9% 60 ML IV SCH ×3 (08:00→19:45)
[2017-12-19] MEDS ORDERED: CALCIUM GLUC 4.65meq/50ml D5AE 50 ML IV ONE (09:15)
[2017-12-19] MEDS: LEVOFLOXACIN 750MG 150 ML IV SCH (10:24)
[2017-12-19] MEDS ORDERED: MORPHINE SULFATE 4 MG/ML SYR/VIAL IV PRN ×3 (11:15)
[2017-12-19] MEDS: fentaNYL Drip 2500mCg/250mlNS 250 ML IV SCH (13:14)
[2017-12-19] MEDS ORDERED: FUROSEMIDE 40 MG/4 ML VIAL IV ONE (16:15)
[2017-12-19] MEDS ORDERED: POTASSIUM CHL 20MEQ/100ML 100 ML IV ONE (16:15)
[2017-12-19] MEDS: NOREPINEPHRINE 8 MG/250ML KIT 250 ML IV SCH (18:00)
[2017-12-19] MEDS: PROPOFOL 100 ML IV SCH (18:43)
[2017-12-19] MEDS ORDERED: TPN PER PHARMACY IV NR ×8 (20:00)
[2017-12-20] VITALS (79 sets, daily range): BP systolic 98–147; BP diastolic 45–100
[2017-12-20] MEDS: LACTULOSE 20Gm/30ML SOLN GT SCH ×5 (00:42→23:58)
[2017-12-20 03:47] LABS: Basophils # (auto) 0 uL; Basophils % (auto) 0.7 % (0.0-2.0); Eosinophils # (auto) 0.2 uL; Hematocrit 27.8 % (41.0-53.0); Hemoglobin 8.9 g/dL (13.5-17.5); Lymphocytes # (auto) 0.4 uL; Lymphocytes % (auto) 8.9 % (10.0-50.0); Mean Corpuscular Hemoglobin 30.8 pg (28.0-32.0); Mean Corpuscular Hgb Conc. 32.1 g/dL (32.0-36.0); Mean Corpuscular Volume 96.1 fL (80.0-100.0); Monocytes # (auto) 0.6 uL; Monocytes % (auto) 12.7 % (0.0-12.0); Neutrophils # (auto) 3.6 uL; Neutrophils % (auto) 73.7 % (37.0-80.0); Nucleated Red Blood Cells % 0.2 %; Platelet Count (auto) 74 10^3/uL (140-450); Red Blood Cells 2.89 10^6/uL (4.5-5.90); Red Cell Distribution Width 17.8 % (11.8-14.3); White Blood Cell 4.8 10^3/uL (4.4-10.8)
[2017-12-20] MEDS: SOD CHL 0.45% 1,000 ML IV SCH ×3 (03:57→23:58)
[2017-12-20] MEDS: OCTREOTIDE ACETATE 500 MCG in SODIUM CHL 0.9% 99 ML IV SCH ×3 (03:57→23:43)
[2017-12-20] MEDS: metroNIDAZOLE 500MG/100ML 100 ML IV SCH ×3 (03:57→19:37)
[2017-12-20 04:09] LABS: BUN/Creatinine Ratio 21.1; Bilirubin, Total 6.2 mg/dL (0.2-1.0); Calcium 7.1 mg/dL (8.5-10.1); Magnesium 1.9 mg/dL (1.6-2.6); Phosphorus 2.5 mg/dL (2.5-4.90); Potassium 3.6 mmol/L (3.5-5.1); Total Protein 4.6 g/dL (6.4-8.2)
[2017-12-20] MEDS: ACCU-CHEK COMFORT CURVE STRIP VI SCH ×5 (06:00→23:58)
[2017-12-20] MEDS: InsuLIN REG 1unit/0.01ml Soln (100units/ml) SC SCH ×5 (06:00→23:58)
[2017-12-20] MEDS ORDERED: SODIUM BICARBONATE 50ML VIAL 100 ML in SOD CHL 0.45% 1,000 ML IV SCH (06:45)
[2017-12-20] MEDS: BUMETANIDE (0.25MG/ML) 4 ML VIAL IV SCH (07:52)
[2017-12-20] MEDS: LEVOFLOXACIN 750MG 150 ML IV SCH (09:22)
[2017-12-20] MEDS ORDERED: IODIXANOL 320MG/ML 100ML BTL IV ONE ×3 (09:31→12:42)
[2017-12-20] MEDS: MIDAZOLAM DRIP 50 mg/50mL 50 ML IV SCH ×4 (11:38→23:57)
[2017-12-20] MEDS: fentaNYL Drip 2500mCg/250mlNS 250 ML IV SCH ×2 (13:14→17:57)
[2017-12-20] MEDS: PANTOPRAZOLE 80 MG in SODIUM CHL 0.9% 60 ML IV SCH (14:00)
[2017-12-20] MEDS: NOREPINEPHRINE 8 MG/250ML KIT 250 ML IV SCH (18:00)
[2017-12-20] MEDS: PROPOFOL 100 ML IV SCH (18:43)
[2017-12-20] MEDS ORDERED: TPN PER PHARMACY IV NR ×8 (20:00)
[2017-12-20] MEDS: RIFAXIMIN 550 MG TAB GT SCH (21:41)
[2017-12-21] VITALS (102 sets, daily range): BP systolic 87–145; BP diastolic 42–83
[2017-12-21] MEDS: PANTOPRAZOLE 80 MG in SODIUM CHL 0.9% 60 ML IV SCH ×3 (03:58→16:33)
[2017-12-21] MEDS: metroNIDAZOLE 500MG/100ML 100 ML IV SCH ×3 (04:00→19:49)
[2017-12-21 04:47] LABS: Basophils # (auto) 0.1 uL; Basophils % (auto) 1.8 % (0.0-2.0); Eosinophils # (auto) 0.2 uL; Eosinophils % (auto) 3.7 % (0.0-7.0); Hematocrit 29.9 % (41.0-53.0); Lymphocytes # (auto) 0.3 uL; Mean Corpuscular Hgb Conc. 33.4 g/dL (32.0-36.0); Mean Corpuscular Volume 95.8 fL (80.0-100.0); Monocytes # (auto) 0.7 uL; Monocytes % (auto) 11.2 % (0.0-12.0); Neutrophils # (auto) 4.9 uL; Neutrophils % (auto) 78.3 % (37.0-80.0); Platelet Count (auto) 67 10^3/uL (140-450); Red Blood Cells 3.12 10^6/uL (4.5-5.90); Red Cell Distribution Width 17.6 % (11.8-14.3); White Blood Cell 6.3 10^3/uL (4.4-10.8)
[2017-12-21 05:23] LABS: BUN/Creatinine Ratio 20.1; Bilirubin, Total 7.6 mg/dL (0.2-1.0); Calcium 7.1 mg/dL (8.5-10.1); Phosphorus 3.3 mg/dL (2.5-4.90); Total Protein 4.8 g/dL (6.4-8.2)
[2017-12-21 05:24] LABS: Magnesium 1.9 mg/dL (1.6-2.6)
[2017-12-21] MEDS: LACTULOSE 20Gm/30ML SOLN GT SCH ×4 (05:28→23:46)
[2017-12-21] MEDS: InsuLIN REG 1unit/0.01ml Soln (100units/ml) SC SCH ×4 (05:28→23:46)
[2017-12-21] MEDS: ACCU-CHEK COMFORT CURVE STRIP VI SCH ×4 (05:29→23:46)
[2017-12-21] MEDS: OCTREOTIDE ACETATE 500 MCG in SODIUM CHL 0.9% 99 ML IV SCH ×2 (07:22→16:33)
[2017-12-21] MEDS: BUMETANIDE (0.25MG/ML) 4 ML VIAL IV SCH (07:22)
[2017-12-21] MEDS: fentaNYL Drip 2500mCg/250mlNS 250 ML IV SCH (07:23)
[2017-12-21] MEDS: SOD CHL 0.45% 1,000 ML IV SCH ×3 (07:38→22:20)
[2017-12-21] MEDS: MIDAZOLAM DRIP 50 mg/50mL 50 ML IV SCH ×4 (09:23→20:58)
[2017-12-21] MEDS: LEVOFLOXACIN 750MG 150 ML IV SCH (09:23)
[2017-12-21] MEDS: RIFAXIMIN 550 MG TAB GT SCH ×2 (09:24→21:36)
[2017-12-21] MEDS ORDERED: BUMETANIDE (0.25MG/ML) 4 ML VIAL IV ONE (11:00)
[2017-12-21] MEDS ORDERED: PROPOFOL 100 ML IV ONE (12:25)
[2017-12-21] MEDS: PROPOFOL 100 ML IV SCH (12:45)
[2017-12-21] MEDS: NOREPINEPHRINE 8 MG/250ML KIT 250 ML IV SCH (13:05)
[2017-12-21] MEDS: [UNRECOGNIZED DRUG - OTHER] IV SCH ×6 (19:58→23:46)
[2017-12-21] MEDS: VASOPRESSIN IV SCH ×6 (19:58→23:46)
[2017-12-21] MEDS: PHENYLEPHRINE INJ 20 MG in SODIUM CHL 0.9% 250 ML IV SCH ×4 (19:58→20:56)
[2017-12-21] MEDS ORDERED: TPN PER PHARMACY IV NR ×8 (20:00)
[2017-12-22] VITALS (69 sets, daily range): BP systolic 69–207; BP diastolic 39–99
[2017-12-22] MEDS: ALBUTEROL SULF 2.5 MG/0.5ML(0.5%) NEB SOLN NEB SCH ×3 (00:17→12:00)
[2017-12-22] MEDS: MIDAZOLAM DRIP 50 mg/50mL 50 ML IV SCH ×3 (00:58→12:40)
[2017-12-22] MEDS: SOD CHL 0.45% 1,000 ML IV SCH (02:00)
[2017-12-22] MEDS: ALBUTEROL SULF 2.5 MG/0.5ML(0.5%) NEB SOLN NEB PRN ×2 (02:42→10:00)
[2017-12-22] MEDS ORDERED: PROPOFOL 100 ML IV ONE ×3 (03:19→11:52)
[2017-12-22] MEDS: fentaNYL Drip 2500mCg/250mlNS 250 ML IV SCH (04:00)
[2017-12-22] MEDS: metroNIDAZOLE 500MG/100ML 100 ML IV SCH ×2 (04:00→12:00)
[2017-12-22 04:06] LABS: Basophils # (auto) 0.1 uL; Basophils % (auto) 0.5 % (0.0-2.0); Eosinophils # (auto) 0.6 uL; Hematocrit 29.3 % (41.0-53.0); Hemoglobin 9.5 g/dL (13.5-17.5); Lymphocytes # (auto) 0.7 uL; Mean Corpuscular Hgb Conc. 32.4 g/dL (32.0-36.0); Mean Corpuscular Volume 95.6 fL (80.0-100.0); Monocytes # (auto) 1.6 uL; Monocytes % (auto) 12.8 % (0.0-12.0); Neutrophils # (auto) 9.1 uL; Neutrophils % (auto) 75.7 % (37.0-80.0); Nucleated Red Blood Cells % 0.2 %; Platelet Count (auto) 121 10^3/uL (140-450); Red Blood Cells 3.07 10^6/uL (4.5-5.90); Red Cell Distribution Width 17.9 % (11.8-14.3); White Blood Cell 12.1 10^3/uL (4.4-10.8)
[2017-12-22 04:18] LABS: Albumin 1.9 g/dL (3.4-5.0); BUN/Creatinine Ratio 17.7; Bilirubin, Total 10.6 mg/dL (0.2-1.0); Calcium 6.9 mg/dL (8.5-10.1); Phosphorus 4.1 mg/dL (2.5-4.90); Potassium 4.2 mmol/L (3.5-5.1); Total Protein 4.8 g/dL (6.4-8.2)
[2017-12-22] MEDS: PHENYLEPHRINE INJ 20 MG in SODIUM CHL 0.9% 250 ML IV SCH ×2 (04:26→11:06)
[2017-12-22] MEDS: [UNRECOGNIZED DRUG - OTHER] IV SCH ×5 (04:57→13:49)
[2017-12-22] MEDS: VASOPRESSIN IV SCH ×5 (04:57→13:49)
[2017-12-22] MEDS ORDERED: VASOPRESSIN 20 UNIT/ML ONE (05:09)
[2017-12-22] MEDS: LACTULOSE 20Gm/30ML SOLN GT SCH ×2 (05:24→12:00)
[2017-12-22] MEDS: PANTOPRAZOLE 80 MG in SODIUM CHL 0.9% 60 ML IV SCH ×2 (05:24→12:40)
[2017-12-22] MEDS: OCTREOTIDE ACETATE 500 MCG in SODIUM CHL 0.9% 99 ML IV SCH ×2 (05:24→12:40)
[2017-12-22] MEDS: InsuLIN REG 1unit/0.01ml Soln (100units/ml) SC SCH (06:00)
[2017-12-22] MEDS: ACCU-CHEK COMFORT CURVE STRIP VI SCH (06:00)
[2017-12-22] MEDS: PROPOFOL 100 ML IV SCH ×2 (06:51→12:04)
[2017-12-22] MEDS ORDERED: BUMETANIDE (0.25MG/ML) 4 ML VIAL IV SCH (07:00)
[2017-12-22] MEDS ORDERED: MORPHINE SULFATE 4 MG/ML SYR/VIAL IV PRN ×3 (09:00)
[2017-12-22] MEDS ORDERED: BUDESONIDE (INHALATION) 0.5 MG/2 ML NEB NEB ONE (09:15)
[2017-12-22] MEDS ORDERED: IPRATROPIUM BROM 0.5 MG/2.5ML INH SOL NEB ONE (09:15)
[2017-12-22] MEDS: RIFAXIMIN 550 MG TAB GT SCH (10:00)
[2017-12-22] MEDS ORDERED: ALBUMIN 25% 100 ML IV SCH (10:00)
[2017-12-22] MEDS ORDERED: BUDESONIDE (INHALATION) 0.5 MG/2 ML NEB NEB SCH (10:00)
[2017-12-22] MEDS ORDERED: ALBUMIN 25% 100 ML IV ONE (10:02)
[2017-12-22] MEDS: LEVOFLOXACIN 750MG 150 ML IV SCH (10:11)
[2017-12-22] MEDS ORDERED: D5W/SOD CHL 0.45% 1,000 ML IV SCH (10:15)
[2017-12-22] MEDS ORDERED: DEXTROSE (50%) 50ML SYRG IV PRN (10:30)
[2017-12-22 11:43] LABS: Hematocrit 28.4 % (41.0-53.0); Hemoglobin 9.3 g/dL (13.5-17.5)
[2017-12-22] MEDS ORDERED: ACCU-CHEK COMFORT CURVE STRIP VI SCH (12:00)
[2017-12-22] MEDS ORDERED: InsuLIN REG 1unit/0.01ml Soln (100units/ml) SC SCH (12:00)
[2017-12-22] MEDS ORDERED: IPRATROPIUM BROM 0.5 MG/2.5ML INH SOL NEB SCH (12:00)
[2017-12-22] MEDS ORDERED: BUMETANIDE (0.25MG/ML) 4 ML VIAL ONE (12:19)
[2017-12-22] MEDS ORDERED: BUMETANIDE 1 MG TAB PO ONE (12:30)
[2017-12-22] MEDS: NOREPINEPHRINE 8 MG/250ML KIT 250 ML IV SCH (14:28)
== END 2017-12-22 19:45 | disposition short-term general hospital (02) | DRG 720 ==
LOC: EDBD 12:23 → ER 12:28 → TELE 12:29 → ICU WEST 22:35
PROVIDERS: ADMIT Internal Medicine; ATTEND Internal Medicine
PROC: 30233K1 Transfusion of Nonautologous Frozen Plasma into Peripheral Vein, Percutaneous Approach (ICD-10-PCS; 2017-12-11)
PROC: 30233N1 Transfusion of Nonautologous Red Blood Cells into Peripheral Vein, Percutaneous Approach (ICD-10-PCS; 2017-12-11)
PROC: 30233L1 Transfusion of Nonautologous Fresh Plasma into Peripheral Vein, Percutaneous Approach (ICD-10-PCS; 2017-12-11)
PROC: 0BH17EZ Insertion of Endotracheal Airway into Trachea, Via Natural or Artificial Opening (ICD-10-PCS; 2017-12-12)
PROC: 06L38CZ Occlusion of Esophageal Vein with Extraluminal Device, Via Natural or Artificial Opening Endoscopic (ICD-10-PCS; 2017-12-12)
PROC: 5A1955Z Respiratory Ventilation, Greater than 96 Consecutive Hours (ICD-10-PCS; principal; 2017-12-12 13:45)
PROC: 02HV33Z Insertion of Infusion Device into Superior Vena Cava, Percutaneous Approach (ICD-10-PCS; 2017-12-15)
PROC: 02H633Z Insertion of Infusion Device into Right Atrium, Percutaneous Approach (ICD-10-PCS; 2017-12-20)
PROC: B2141ZZ Fluoroscopy of Right Heart using Low Osmolar Contrast (ICD-10-PCS; 2017-12-20)
PROC: B244ZZZ Ultrasonography of Right Heart (ICD-10-PCS; 2017-12-20)
PROC: 06WY3DZ Revision of Intraluminal Device in Lower Vein, Percutaneous Approach (ICD-10-PCS; 2017-12-20)
PROC: 02HV33Z Insertion of Infusion Device into Superior Vena Cava, Percutaneous Approach (ICD-10-PCS; 2017-12-22)
DX: A41.9 Sepsis, unspecified organism (principal); N17.0 Acute kidney failure with tubular necrosis; J96.00 Acute respiratory failure, unspecified whether with hypoxia or hypercapnia; E43 Unspecified severe protein-calorie malnutrition; R65.21 Severe sepsis with septic shock; R57.8 Other shock; I85.11 Secondary esophageal varices with bleeding; D62 Acute posthemorrhagic anemia; I85.00 Esophageal varices without bleeding; E87.1 Hypo-osmolality and hyponatremia; E87.0 Hyperosmolality and hypernatremia; E86.0 Dehydration; J20.9 Acute bronchitis, unspecified; I86.4 Gastric varices; E87.5 Hyperkalemia; T79.A3XA Traumatic compartment syndrome of abdomen, initial encounter; X58.XXXA Exposure to other specified factors, initial encounter; K72.90 Hepatic failure, unspecified without coma; K70.30 Alcoholic cirrhosis of liver without ascites; E11.9 Type 2 diabetes mellitus without complications; F41.9 Anxiety disorder, unspecified; I10 Essential (primary) hypertension; K76.6 Portal hypertension; N20.0 Calculus of kidney; F17.210 Nicotine dependence, cigarettes, uncomplicated; F15.90 Other stimulant use, unspecified, uncomplicated; H53.8 Other visual disturbances; Q39.4 Esophageal web; Z68.32 Body mass index [BMI] 32.0-32.9, adult; Z90.49 Acquired absence of other specified parts of digestive tract; Z83.3 Family history of diabetes mellitus; Z88.5 Allergy status to narcotic agent
CPT/HCPCS: 31500; 36415; 36430; 36600; 43244; 51702; 71045; 74018; 74176; 76000; 76705; 76937; 76942; 80048; 80053; 80307; 80320; 81001; 82040; 82140; 82150; 82270; 82570; 82805; 82962; 83036; 83605; 83690; 83735; 83880; 84100; 84132; 84156; 84300; 84443; 84478; 84484; 85014; 85018; 85025; 85045; 85379; 85610; 85730; 86850; 86900; 86901; 86920; 87040; 87070; 87077; 87081; 87186; 87205; 94002; 94003; 94640; 96374; 96375; 99152; 99153; 99291; A6257; C1769; C9113; J0330; J0610; J0696; J1815; J1956; J2001; J2250; J2405; J2704; J3430; J3480; J3490; J7060; P9047; Q9967

== ENCOUNTER 2018-06-22 19:15 | Emergency (ER) | payer MEDICAID ==
[~2018-06-22] VITALS: Ht 182.9 cm; Wt 113.4 kg
[2018-06-22] MEDS ORDERED: SODIUM CHLORIDE 0.9% 1,000 ML IVB ONE (19:41)
[2018-06-22] MEDS ORDERED: InsuLIN REG 1unit/0.01ml Soln (100units/ml) IV ONE (19:45)
[2018-06-22 20:44] LABS: Basophils # (auto) 0.1 uL; Basophils % (auto) 1.3 % (0.0-2.0); Eosinophils # (auto) 0.1 uL; Eosinophils % (auto) 1.6 % (0.0-7.0); Hemoglobin 13.4 g/dL (13.5-17.5); Lymphocytes # (auto) 0.8 uL; Lymphocytes % (auto) 14.1 % (10.0-50.0); Mean Corpuscular Hemoglobin 30.2 pg (28.0-32.0); Mean Corpuscular Hgb Conc. 33.5 g/dL (32.0-36.0); Mean Corpuscular Volume 90.2 fL (80.0-100.0); Monocytes # (auto) 0.4 uL; Monocytes % (auto) 7.8 % (0.0-12.0); Neutrophils # (auto) 4.3 uL; Neutrophils % (auto) 75.2 % (37.0-80.0); Nucleated Red Blood Cells % 0.1 %; Platelet Count (auto) 94 10^3/uL (140-450); Red Blood Cells 4.44 10^6/uL (4.5-5.90); Red Cell Distribution Width 15.5 % (11.8-14.3); White Blood Cell 5.7 10^3/uL (4.4-10.8)
[2018-06-22 20:56] LABS: INR 1.02 (0.9-1.15); Prothrombin Time 10.9 sec (9.27-12.13)
[2018-06-22 21:03] LABS: Albumin 3.1 g/dL (3.4-5.0); Calcium 9.2 mg/dL (8.5-10.1); Magnesium 2.4 mg/dL (1.6-2.6); Potassium 4.8 mmol/L (3.5-5.1)
[2018-06-22 21:05] LABS: BUN/Creatinine Ratio 14.9; Bilirubin, Total 1.3 mg/dL (0.2-1.0); Total Protein 8.2 g/dL (6.4-8.2)
[2018-06-22 21:26] LABS: Urine Bacteria NONE SEEN /hpf (None Seen); Urine Blood TRACE /uL (Negative); Urine Specific Gravity 1.029 (1.001-1.035); Urine WBC 1 /hpf (0 - 3)
[2018-06-23] MEDS ORDERED: metFORMIN HYDROCHLORIDE 500 MG TAB PO ONE
[2018-06-23 00:06] VITALS: BP 165/77
== END 2018-06-23 00:41 | disposition home or self-care (01) ==
LOC: EDBD 19:15 → ER 19:29
DX: E11.65 Type 2 diabetes mellitus with hyperglycemia (principal); E78.5 Hyperlipidemia, unspecified; I10 Essential (primary) hypertension; F17.210 Nicotine dependence, cigarettes, uncomplicated; F15.10 Other stimulant abuse, uncomplicated; I25.10 Atherosclerotic heart disease of native coronary artery without angina pectoris; Z88.6 Allergy status to analgesic agent
CPT/HCPCS: 36415; 71045; 80053; 81001; 82010; 82150; 82962; 83036; 83690; 83735; 85025; 85610; 85730; 93005; 94761; 96361; 96374; 99284; J1815; J7030

== ENCOUNTER 2018-07-13 12:18 | Inpatient (IN) | payer MEDICAID | END 2018-07-15 16:50 | disposition home or self-care (01) | LOC: ER 12:18 → TELE 15:57 → TELE-CENTR 22:20 | DX: K72.90 Hepatic failure, unspecified without coma (principal); D69.6 Thrombocytopenia, unspecified; N17.9 Acute kidney failure, unspecified; K76.6 Portal hypertension; E11.65 Type 2 diabetes mellitus with hyperglycemia; E44.1 Mild protein-calorie malnutrition; N18.3 Chronic kidney disease, stage 3 (moderate); Z79.4 Long term (current) use of insulin; K74.60 Unspecified cirrhosis of liver; D63.8 Anemia in other chronic diseases classified elsewhere ==

== ENCOUNTER 2020-03-04 18:51 | Emergency (ER) | payer MEDICARE, MEDICAID ==
[~2020-03-04] VITALS: Ht 180.3 cm; Wt 99.8 kg
[~2020-03-04 18:51] MED LIST: CYCL5TAB PO; IPRAAER6 IN; LACT10SO3 PO; LACT10SO59 PO; METF-371 PO; PANT1INJ3 PO; RIFA550T PO; SIMV-8 PO; SPIR50TA5 PO; ZIN220C PO
[2020-03-04] MEDS ORDERED: ACETAMINOPHEN 500 MG TAB PO ONE (20:00)
[2020-03-05 00:15] LABS: Basophils # (auto) 0.1 10 ^3/uL (0-0.2); Basophils % (auto) 0.5 % (0.0-2.0); Eosinophils # (auto) 0.2 10 ^3/uL (0-0.8); Eosinophils % (auto) 2.3 % (0.0-7.0); Hematocrit 44.1 % (41.0-53.0); Hemoglobin 15.6 g/dL (13.5-17.5); Lymphocytes # (auto) 0.9 10 ^3/uL (0.4-5.4); Mean Corpuscular Hemoglobin 31.3 pg (28.0-32.0); Mean Corpuscular Hgb Conc. 35.3 g/dL (32.0-36.0); Mean Corpuscular Volume 88.8 fL (80.0-100.0); Monocytes % (auto) 9.1 % (0.0-12.0); Neutrophils # (auto) 8.6 10 ^3/uL (1.6-8.6); Neutrophils % (auto) 80.1 % (37.0-80.0); Nucleated Red Blood Cells % 0.2 %; Platelet Count (auto) 199 10^3/uL (140-450); Red Blood Cells 4.96 10^6/uL (4.5-5.90); Red Cell Distribution Width 14.4 % (11.8-14.3); White Blood Cell 10.7 10^3/uL (4.4-10.8)
[2020-03-05 00:34] LABS: Alanine Aminotransferase 42 U/L (16-61); Albumin 2.8 g/dL (3.4-5.0); Anion Gap 5 (5-15); Aspartate Aminotransferase 95 U/L (15-37); BUN/Creatinine Ratio 13.6; Blood Urea Nitrogen 11 mg/dL (7-18); Calcium 8.8 mg/dL (8.5-10.1); Carbon Dioxide 29 mmol/L (21-32); Chloride 98 mmol/L (98-107); GFR African American 123 mL/min; GFR Non-African American 101 mL/min; Glucose 87 mg/dL (74-106); Lipase 64 U/L (73-393); Magnesium 1.9 mg/dL (1.6-2.6); Potassium 4.1 mmol/L (3.5-5.1); Sodium 132 mmol/L (136-145)
[2020-03-05 00:38] LABS: Alkaline Phosphatase 258 U/L (45-117); Bilirubin, Total 2.7 mg/dL (0.2-1.0); Total Protein 8.5 g/dL (6.4-8.2)
[2020-03-05 01:05] VITALS: BP 139/53
[2020-03-05] MEDS ORDERED: IOHEXOL 300 MG/ML 100ML BOTTLE IJ ONE (01:29)
== END 2020-03-05 05:30 | disposition home or self-care (01) ==
LOC: ER 18:51
DX: R53.1 Weakness (principal); R59.1 Generalized enlarged lymph nodes; K74.60 Unspecified cirrhosis of liver; K80.20 Calculus of gallbladder without cholecystitis without obstruction; C22.0 Liver cell carcinoma; E11.9 Type 2 diabetes mellitus without complications; F17.210 Nicotine dependence, cigarettes, uncomplicated; I10 Essential (primary) hypertension; Z79.899 Other long term (current) drug therapy; Z20.828 Contact with and (suspected) exposure to other viral communicable diseases
CPT/HCPCS: 36415; 71045; 74177; 80053; 83605; 83690; 83735; 83880; 84484; 85025; 87426; 93005; 99285; C9803; Q9967; U0003

== ENCOUNTER → 2020-03-15 | Emergency (ER) | payer MEDICARE, MEDICAID ==
[~2020-03-15] VITALS: Ht 177.8 cm; Wt 81.6 kg
[2020-03-15 22:19] VITALS: BP 128/60
== END | disposition left against medical advice (07) ==
LOC: EDUNIT# 21:27 → EDBD 21:32 → ER 21:37
DX: M79.10 Myalgia, unspecified site (principal); Z53.21 Procedure and treatment not carried out due to patient leaving prior to being seen by health care provider